=== PATIENT | male | born 1970 | race Caucasian/White ===

== ENCOUNTER → 2021-01-18 | Day surgery (SDC) | payer OTHER ==
[~2021-01-18] VITALS: Ht 175.3 cm; Wt 70.3 kg
[~2021-01-18] MED LIST: ZINC50 M1 PO
== END | disposition home or self-care (01) ==
LOC: FAS 10:52
DX: Z12.11 Encounter for screening for malignant neoplasm of colon (principal); Z80.0 Family history of malignant neoplasm of digestive organs; R43.8 Other disturbances of smell and taste; U09.9 Post COVID-19 condition, unspecified
CPT/HCPCS: G0105; J2250; J2704; J7120